=== PATIENT | female | born 1950 | race Caucasian/White ===

== ENCOUNTER 2024-05-20 16:02 | Emergency (ER) | payer MEDICARE, OTHER ==
[2024-05-20] MEDS ORDERED: Naproxen 500 MG TAB ONE (16:31)
[2024-05-20] MEDS ORDERED: Bacitracin 1 PK ONE (16:47)
[2024-05-20] MEDS ORDERED: Boostrix 0.5 ML (Tdap) VIAL (>/=7 yrs of age) ONE (16:48)
[2024-05-20] MEDS ORDERED: Silver Sulfadiazine 50 GM TUBE ONE (16:48)
== END 2024-05-20 17:57 | disposition home or self-care (01) ==
LOC: NAV ERS 16:02
DX: S80.02XA Contusion of left knee, initial encounter (principal); S80.01XA Contusion of right knee, initial encounter; S40.012A Contusion of left shoulder, initial encounter; S50.02XA Contusion of left elbow, initial encounter; S90.32XA Contusion of left foot, initial encounter; T24.201A Burn of second degree of unspecified site of right lower limb, except ankle and foot, initial encounter; T31.0 Burns involving less than 10% of body surface; S70.312A Abrasion, left thigh, initial encounter; S70.311A Abrasion, right thigh, initial encounter; I10 Essential (primary) hypertension; E78.00 Pure hypercholesterolemia, unspecified; Z79.899 Other long term (current) drug therapy; Z79.82 Long term (current) use of aspirin; V87.8XXA Person injured in other specified noncollision transport accidents involving motor vehicle (traffic), initial encounter
CPT/HCPCS: 90715; 99284